=== PATIENT | male | born 1945 | race Caucasian/White ===

== ENCOUNTER 2016-12-09 14:57 | Inpatient (IN) | payer MEDICARE ==
[2016-12-09] MEDS ORDERED: ONDANSETRON 4 MG/2 ML VIAL IVP STA (17:25)
[2016-12-09] MEDS ORDERED: SODIUM CHLORIDE 0.9% 1,000 ML IV ONE (17:25)
[2016-12-09] MEDS ORDERED: HYDROmorphone 1 MG/ML 1 ML SYRINGE IVP STA (17:25)
--- NOTE | 2016-12-09 17:30 | ED ---
Abdominal Pain HPI - General Source: patient, RN notes reviewed Mode of arrival: ambulatory Limitations: no limitations <Courtney Mulligan - Last Filed: 12/09/16 20:20> <Abhay Hernandez - Last Filed: 12/09/16 21:20> - General Chief Complaint: Abdominal Pain Stated Complaint: Abd Pain Time Seen by Provider: 12/09/16 17:02 - History of Present Illness Initial Comments: Patient is a 71-year-old male presents emergency room for evaluation of abdominal pain. Patient states the pain began around 10:30 this morning. Patient does state he has a history of gallstones. Patient states he was told by his primary care provider about 2 years ago that he did. Patient states that he had pizza last night and hinojosa this morning. Patient states the pain started shortly after eating the hinojosa. Patient states been very nauseous with vomiting. Patient states the pain is in his right upper quadrant and radiates to his left upper quadrant. The patient denies any abdominal surgical history. Patient denies constipation or diarrhea. Patient has pain or burning during urination, trouble urinating or blood in urine. Patient denies headache or dizziness. Patient denies shortness of breath. Patient states the pain radiates into his back. (Courtney Mulligan) - Related Data Home Medications Medication Instructions Recorded Confirmed Aspirin 81 mg PO DAILY 12/09/16 12/09/16 Atorvastatin [Lipitor] 20 mg PO HS 12/09/16 12/09/16 Irbesartan/Hydrochlorothiazide 1 tab PO DAILY 12/09/16 12/09/16 [Irbesartan-Hctz 300-12.5 mg Tb] Multivitamins, Thera [Multivitamin 1 tab PO DAILY 12/09/16 12/09/16 (formulary)] [place]-3 Fatty Acids/Fish Oil [Fish 1 cap PO DAILY 12/09/16 12/09/16 Oil 1,000 mg Softgel] Omeprazole 20 mg PO BID 12/09/16 12/09/16 Allergies Allergy/AdvReac Type Severity Reaction Status Date / Time No Known Allergies Allergy Verified 12/09/16 17:15 Review of Systems ROS Other: All systems not noted in ROS Statement are negative. <Courtney Mulligan - Last Filed: 12/09/16 20:20> ROS Other: All systems not noted in ROS Statement are negative. <Abhay Hernandez - Last Filed: 12/09/16 21:20> ROS Statement: Those systems with pertinent positive or pertinent negative responses have been documented in the HPI. Past Medical History Past Medical History: GERD/Reflux Additional Past Medical History / Comment(s): hiatal hernia, gallstones, esophageal erosion History of Any Multi-Drug Resistant Organisms: None Reported Past Surgical History: Hernia Repair Past Psychological History: No Psychological Hx Reported Smoking Status: Never smoker Past Alcohol Use History: None Reported Past Drug Use History: None Reported <Courtney Mulligan - Last Filed: 12/09/16 20:20> General Exam Limitations: no limitations General appearance: alert, in no apparent distress Head exam: Present: atraumatic, normocephalic, normal inspection Eye exam: Present: normal appearance ENT exam: Present: normal exam Neck exam: Present: normal inspection Respiratory exam: Present: normal lung sounds bilaterally. Absent: respiratory distress Cardiovascular Exam: Present: regular rate, normal rhythm, normal heart sounds GI/Abdominal exam: Present: soft, tenderness (Right upper quadrant and left upper quadrant), normal bowel sounds. Absent: distended, guarding, rebound, rigid Extremities exam: Present: normal inspection Back exam: Present: normal inspection Neurological exam: Present: alert, oriented X3, CN II-XII intact, normal gait Psychiatric exam: Present: normal affect, normal mood Skin exam: Present: warm, dry, intact, normal color. Absent: rash <Courtney Mulligan - Last Filed: 12/09/16 20:20> <Abhay Hernandez - Last Filed: 12/09/16 21:20> - General Exam Comments Initial Comments: Laying in exam room, no acute distress. (Courtney Mulligan) Medical Decision Making - Lab Data Result diagrams: 12/09/16 17:30 12/09/16 17:18 - Radiology Data Radiology results: report reviewed, image reviewed <Courtney Mulligan - Last Filed: 12/09/16 20:20> - Lab Data Result diagrams: 12/09/16 17:30 12/09/16 17:18 <Abhay Hernandez - Last Filed: 12/09/16 21:20> - Medical Decision Making Patient is 71-year-old male presents emergency room for evaluation of right upper quadrant pain, nausea and vomiting. Patient noted to have a fever while he was here. Elevated WBC. Elevated liver enzymes. Elevated amylase and lipase. Gallbladder US: Mobile gallbladder sludge and elongation. Although likely unrelated to acute cholecystitis. Common bile duct obscured by overlying bowel gas. Case discussed Dr. Morris. Dr. Hernandez discussed case with Dr. Wolf who agreed to admit patient. Patient become consult with GI specialist and surgery. Patient NPO. Patient started Zosyn. (Courtney Mulligan) The case discussed with Dr. Gipson, patient be admitted to his service. Case discussed with trailer steerer Dr. Fitzgerald, he'll see the patient in hospital. Dr. Hernandez Reports that the pain started acutely earlier today. Denies ever having had gallbladder or pancreatic problems in the past. Examination found the abdomen to palpation negative Aguero sign NABS. A she does state that his urine was darker this morning. Dr. Hernandez (Abhay Hernandez) - Lab Data Lab Results 12/09/16 12/09/16 12/09/16 Range/Units 17:18 17:30 17:32 WBC 14.6 H (3.8-10.6) k/uL RBC 5.22 (4.30-5.90) m/uL Hgb 15.0 (13.0-17.5) gm/dL Hct 46.9 (39.0-53.0) % MCV 89.8 (80.0-100.0) fL MCH 28.8 (25.0-35.0) pg MCHC 32.1 (31.0-37.0) g/dL RDW 13.5 (11.5-15.5) % Plt Count 264 (150-450) k/uL Neutrophils % 90 % Lymphocytes % 5 % Monocytes % 4 % Eosinophils % 1 % Basophils % 0 % Neutrophils # 13.1 H (1.3-7.7) k/uL Lymphocytes # 0.7 L (1.0-4.8) k/uL Monocytes # 0.6 (0-1.0) k/uL Eosinophils # 0.1 (0-0.7) k/uL Basophils # 0.0 (0-0.2) k/uL PT (9.0-12.0) sec INR (<1.1) Sodium 143 (137-145) mmol/L Potassium 4.0 (3.5-5.1) mmol/L Chloride 104 (98-107) mmol/L Carbon Dioxide 22 (22-30) mmol/L Anion Gap 17 mmol/L BUN 19 (9-20) mg/dL Creatinine 0.95 (0.66-1.25) mg/dL Est GFR (MDRD) Af Amer >60 (>60 ml/min/1.73 sqM) Est GFR (MDRD) Non-Af >60 (>60 ml/min/1.73 sqM) Glucose 165 H (74-99) mg/dL Calcium 9.4 (8.4-10.2) mg/dL Magnesium 1.8 (1.6-2.3) mg/dL Total Bilirubin 3.5 H (0.2-1.3) mg/dL AST 233 H (17-59) U/L ALT 140 H (21-72) U/L Alkaline Phosphatase 444 H (38-126) U/L Total Creatine Kinase 45 L (55-170) U/L CK-MB (CK-2) 0.8 (0.0-2.4) ng/mL CK-MB (CK-2) Rel Index 1.8 Troponin I <0.012 (0.000-0.034) ng/mL Total Protein 7.9 (6.3-8.2) g/dL Albumin 4.5 (3.5-5.0) g/dL Amylase 1620 H* (30-110) U/L Lipase >06178 H (23-300) U/L 12/09/16 Range/Units 17:32 WBC (3.8-10.6) k/uL RBC (4.30-5.90) m/uL Hgb (13.0-17.5) gm/dL Hct (39.0-53.0) % MCV (80.0-100.0) fL MCH (25.0-35.0) pg MCHC (31.0-37.0) g/dL RDW (11.5-15.5) % Plt Count (150-450) k/uL Neutrophils % % Lymphocytes % % Monocytes % % Eosinophils % % Basophils % % Neutrophils # (1.3-7.7) k/uL Lymphocytes # (1.0-4.8) k/uL Monocytes # (0-1.0) k/uL Eosinophils # (0-0.7) k/uL Basophils # (0-0.2) k/uL PT 11.1 (9.0-12.0) sec INR 1.1 (<1.1) Sodium (137-145) mmol/L Potassium (3.5-5.1) mmol/L Chloride (98-107) mmol/L Carbon Dioxide (22-30) mmol/L Anion Gap mmol/L BUN (9-20) mg/dL Creatinine (0.66-1.25) mg/dL Est GFR (MDRD) Af Amer (>60 ml/min/1.73 sqM) Est GFR (MDRD) Non-Af (>60 ml/min/1.73 sqM) Glucose (74-99) mg/dL Calcium (8.4-10.2) mg/dL Magnesium (1.6-2.3) mg/dL Total Bilirubin (0.2-1.3) mg/dL AST (17-59) U/L ALT (21-72) U/L Alkaline Phosphatase (38-126) U/L Total Creatine Kinase (55-170) U/L CK-MB (CK-2) (0.0-2.4) ng/mL CK-MB (CK-2) Rel Index Troponin I (0.000-0.034) ng/mL Total Protein (6.3-8.2) g/dL Albumin (3.5-5.0) g/dL Amylase (30-110) U/L Lipase (23-300) U/L 12/09/16 19:51 Normal sinus rhythm, ventricular rate 75 bpm, WA interval 154 ms, QRS duration 150 ms, QT/QTc 420/469 ms (Courtney Mulligan) Disposition Decision Date: 12/09/16 <Courtney Mulligan - Last Filed: 12/09/16 20:20> <Abhay Hernandez - Last Filed: 12/09/16 21:20> Clinical Impression: Cholecystitis, Pancreatitis Disposition: ADMITTED IP TO THIS [facility] Condition: Stable
[2016-12-09 17:45] LABS: Basophils % (A) 0 %; CH 28.1; CHCM 31.5; Eosinophils # (A) 0.1 k/uL (0-0.7); Eosinophils % (A) 1 %; HCT 46.9 % (39.0-53.0); HDW 2.56; Luc # (Auto) 0.08; Luc % (Auto) 1; Lymphocytes # (A) 0.7 k/uL (1.0-4.8); Lymphocytes % (A) 5 %; MCH 28.8 pg (25.0-35.0); MCHC 32.1 g/dL (31.0-37.0); MCV 89.8 fL (80.0-100.0); Mean Platelet Volume 7.6; Monocytes # (A) 0.6 k/uL (0-1.0); Monocytes % (A) 4 %; Neutrophils # (A) 13.1 k/uL (1.3-7.7); Neutrophils % (A) 90 %; RBC 5.22 m/uL (4.30-5.90); RDW 13.5 % (11.5-15.5); WBC 14.6 k/uL (3.8-10.6); WBC (Perox) 14.79
[2016-12-09 17:53] LABS: ALT 140 U/L (21-72); AST 233 U/L (17-59); Alkaline Phosphatase 444 U/L (38-126); Anion Gap 17 mmol/L; Blood Urea Nitrogen 19 mg/dL (9-20); Calcium 9.4 mg/dL (8.4-10.2); Carbon Dioxide 22 mmol/L (22-30); Chloride 104 mmol/L (98-107); Glucose 165 mg/dL (74-99); Magnesium 1.8 mg/dL (1.6-2.3); Non-African American GFR(MDRD) >60 (>60 ml/min/1.73 sqM); Sodium 143 mmol/L (137-145); Total Bilirubin 3.5 mg/dL (0.2-1.3); Total Protein 7.9 g/dL (6.3-8.2)
[2016-12-09 17:56] LABS: Creatine Kinase 45 U/L (55-170)
[2016-12-09 18:08] LABS: Creatine Kinase MB 0.8 ng/mL (0.0-2.4); Troponin I <0.012 ng/mL (0.000-0.034)
[2016-12-09 18:09] LABS: Amylase 1620 U/L (30-110)
--- NOTE | 2016-12-09 18:17 | XR ---
EXAMINATION TYPE: XR chest 2V DATE OF EXAM: 12/09/2016 5:57 PM COMPARISON: NONE HISTORY: Vomiting and chest pain. TECHNIQUE: Frontal and lateral views of the chest are obtained. FINDINGS: There is no focal air space opacity, pleural effusion, or pneumothorax seen. Minimal bibas ilar subsegmental atelectasis is seen. The cardiac silhouette size is within normal limits. The oss eous structures are intact. IMPRESSION: Minimal bibasilar subsegmental atelectasis with no focal consolidation.
[2016-12-09 18:18] LABS: INR 1.1 (<1.1); Prothrombin Time 11.1 sec (9.0-12.0)
[2016-12-09] MEDS ORDERED: ACETAMINOPHEN IV (For NPO) 1,000 MG in EMPTY BAG 1 BAG IVPB STA ×2 (19:13→19:34)
--- NOTE | 2016-12-09 20:08 | US ---
EXAMINATION TYPE: US abdomen limited DATE OF EXAM: 12/09/2016 7:34 PM COMPARISON: NONE CLINICAL HISTORY: Pain. N/V, RUQ pain EXAM MEASUREMENTS: Liver Length: 16.9 cm Gallbladder Wall: 0.3 cm Right Kidney: 10.9 x 5.5 x 5.0 cm Suboptimal visualization due to bowel gas Pancreas: Obscured by bowel gas Liver: wnl as visualized Gallbladder: The gallbladder is elongated measuring 10.6 cm. Internal mobile debris is noted. There is no evidence of pericholecystic fluid or gallbladder wall thickening. Evidence for sonographic Aguero's sign: neg CBD: Obscured by overlying bowel gas Right Kidney: wnl as visualized IMPRESSION: Mobile gallbladder sludge and elongation, although likely unrelated to acute cholecystiti s. Common bile duct is obscured by overlying bowel gas.
[2016-12-09] MEDS ORDERED: PIPERACILLIN-TAZOBACTAM 3.375 GM in DEXTROSE/WATER 1 50ML.BAG IVPB STA (20:13)
[2016-12-09] MEDS ORDERED: ONDANSETRON 4 MG/2 ML VIAL IVP PRN (20:17)
[2016-12-09] MEDS ORDERED: NALOXONE 0.4 MG/ML 1 ML VIAL IV PRN (20:17)
[2016-12-09] MEDS ORDERED: HYDROmorphone 1 MG/ML 1 ML SYRINGE IV PRN (20:17)
[2016-12-09] MEDS: SODIUM CHLORIDE 0.9% 1,000 ML IV SCH (21:20)
[2016-12-10] MEDS: SODIUM CHLORIDE 0.9% 1,000 ML IV SCH ×2 (06:38→17:44)
[2016-12-10 07:49] LABS: Basophils % (A) 0 %; CH 28.4; CHCM 32.1; Eosinophils % (A) 0 %; HCT 38.9 % (39.0-53.0); HGB 12.5 gm/dL (13.0-17.5); Luc # (Auto) 0.27; Luc % (Auto) 2; Lymphocytes # (A) 0.8 k/uL (1.0-4.8); Lymphocytes % (A) 7 %; MCH 28.6 pg (25.0-35.0); MCHC 32.1 g/dL (31.0-37.0); Mean Platelet Volume 8.1; Monocytes # (A) 0.8 k/uL (0-1.0); Monocytes % (A) 7 %; Neutrophils # (A) 9.3 k/uL (1.3-7.7); Neutrophils % (A) 83 %; RBC 4.37 m/uL (4.30-5.90); RDW 13.6 % (11.5-15.5); WBC 11.3 k/uL (3.8-10.6); WBC (Perox) 12.35
[2016-12-10 08:12] LABS: ALT 159 U/L (21-72); AST 218 U/L (17-59); Alkaline Phosphatase 317 U/L (38-126); Anion Gap 8 mmol/L; Blood Urea Nitrogen 21 mg/dL (9-20); Calcium 8.5 mg/dL (8.4-10.2); Carbon Dioxide 29 mmol/L (22-30); Chloride 108 mmol/L (98-107); Glucose 110 mg/dL (74-99); Non-African American GFR(MDRD) >60 (>60 ml/min/1.73 sqM); Potassium 3.8 mmol/L (3.5-5.1); Sodium 145 mmol/L (137-145); Total Bilirubin 4.2 mg/dL (0.2-1.3); Total Protein 6.1 g/dL (6.3-8.2)
--- NOTE | 2016-12-10 10:50 | P.GSCN ---
History of Present Illness Consult date: 12/10/16 Reason for Consult: Right quadrant pain History of present illness: This a 71-year-old male who is admitted to the hospital with complaint abdominal pain. Patient has a known history of gallstones. Patient developed pain which radiated to his back. His nasal hospital found have gallstones pancreatitis. Review of Systems - Constitutional Reports as per HPI Past Medical History Past Medical History: GERD/Reflux Additional Past Medical History / Comment(s): hiatal hernia, gallstones, esophageal erosion History of Any Multi-Drug Resistant Organisms: None Reported Past Surgical History: Hernia Repair, Tonsillectomy Additional Past Surgical History / Comment(s): detached retnia repair Past Anesthesia/Blood Transfusion Reactions: Previous Problems w/ Anesthesia Additional Past Anesthesia/Blood Transfusion Reaction / Comm: difficulty waking up Past Psychological History: No Psychological Hx Reported Smoking Status: Never smoker Past Alcohol Use History: None Reported Past Drug Use History: None Reported - Past Family History Father Family Medical History: GERD/Reflux Additional Family Medical History / Comment(s): gallbladder removed Mother Family Medical History: Congestive Heart Failure (CHF), Diabetes Mellitus Medications and Allergies Home Medications Medication Instructions Recorded Confirmed Type Aspirin 81 mg PO DAILY 12/09/16 12/09/16 History Atorvastatin [Lipitor] 20 mg PO HS 12/09/16 12/09/16 History Irbesartan/Hydrochlorothiazide 1 tab PO DAILY 12/09/16 12/09/16 History [Irbesartan-Hctz 300-12.5 mg Tb] Multivitamins, Thera [Multivitamin 1 tab PO DAILY 12/09/16 12/09/16 History (formulary)] [place]-3 Fatty Acids/Fish Oil [Fish 1 cap PO DAILY 12/09/16 12/09/16 History Oil 1,000 mg Softgel] Omeprazole 20 mg PO BID 12/09/16 12/09/16 History Allergies Allergy/AdvReac Type Severity Reaction Status Date / Time No Known Allergies Allergy Verified 12/09/16 17:15 Surgical - Exam Vital Signs Temp Pulse Resp BP Pulse Ox 98.3 F 83 20 141/62 98 12/09/16 15:45 12/09/16 15:45 12/09/16 15:45 12/09/16 15:45 12/09/16 15:45 - General well developed, no distress - Eyes PERRL - ENT normal pinna - Neck no masses - Respiratory normal expansion - Cardiovascular Rhythm: regular - Abdomen Mild epigastric tenderness Abdomen: soft Results - Labs 12/10/16 07:26 12/10/16 07:26 Abnormal Lab Results - Last 24 Hours (Table) 12/10/16 12/10/16 Range/Units 07:26 07:26 WBC 11.3 H (3.8-10.6) k/uL Hgb 12.5 L (13.0-17.5) gm/dL Hct 38.9 L (39.0-53.0) % Neutrophils # 9.3 H (1.3-7.7) k/uL Lymphocytes # 0.8 L (1.0-4.8) k/uL Chloride 108 H (98-107) mmol/L BUN 21 H (9-20) mg/dL Glucose 110 H (74-99) mg/dL Total Bilirubin 4.2 H (0.2-1.3) mg/dL AST 218 H (17-59) U/L ALT 159 H (21-72) U/L Alkaline Phosphatase 317 H (38-126) U/L Total Protein 6.1 L (6.3-8.2) g/dL Albumin 3.3 L (3.5-5.0) g/dL Diabetes panel 12/10/16 Range/Units 07:26 Sodium 145 (137-145) mmol/L Potassium 3.8 (3.5-5.1) mmol/L Chloride 108 H (98-107) mmol/L Carbon Dioxide 29 (22-30) mmol/L BUN 21 H (9-20) mg/dL Creatinine 1.14 (0.66-1.25) mg/dL Glucose 110 H (74-99) mg/dL Calcium 8.5 (8.4-10.2) mg/dL AST 218 H (17-59) U/L ALT 159 H (21-72) U/L Alkaline Phosphatase 317 H (38-126) U/L Total Protein 6.1 L (6.3-8.2) g/dL Albumin 3.3 L (3.5-5.0) g/dL Calcium panel 12/10/16 Range/Units 07:26 Calcium 8.5 (8.4-10.2) mg/dL Albumin 3.3 L (3.5-5.0) g/dL Pituitary panel 12/10/16 Range/Units 07:26 Sodium 145 (137-145) mmol/L Potassium 3.8 (3.5-5.1) mmol/L Chloride 108 H (98-107) mmol/L Carbon Dioxide 29 (22-30) mmol/L BUN 21 H (9-20) mg/dL Creatinine 1.14 (0.66-1.25) mg/dL Glucose 110 H (74-99) mg/dL Calcium 8.5 (8.4-10.2) mg/dL Adrenal panel 12/10/16 Range/Units 07:26 Sodium 145 (137-145) mmol/L Potassium 3.8 (3.5-5.1) mmol/L Chloride 108 H (98-107) mmol/L Carbon Dioxide 29 (22-30) mmol/L BUN 21 H (9-20) mg/dL Creatinine 1.14 (0.66-1.25) mg/dL Glucose 110 H (74-99) mg/dL Calcium 8.5 (8.4-10.2) mg/dL Total Bilirubin 4.2 H (0.2-1.3) mg/dL AST 218 H (17-59) U/L ALT 159 H (21-72) U/L Alkaline Phosphatase 317 H (38-126) U/L Total Protein 6.1 L (6.3-8.2) g/dL Albumin 3.3 L (3.5-5.0) g/dL Assessment and Plan Plan: Gallstone [place]. Patient's pain is improved. We'll start him on clear liquid diet. His liver function tests we'll repeat reexamined in the a.m.
--- NOTE | 2016-12-10 14:21 | HP ---
DATE OF ADMISSION: CHIEF COMPLAINT: A 71-year-old white male with abdominal pain, nausea and vomiting. HISTORY OF PRESENT ILLNESS: This 71-year-old white male has a past medical history of hypertension and gallstones. He had some pizza and hinojosa. After that he became nauseous, vomiting, with right upper quadrant pain. He came to the hospital, was found to have acute cholecystitis on ultrasound. Admitted for surgery and rehydration. ( ) no chest pain, no shortness of breath. Medications include: 1. Aspirin 81 daily. 2. Lipitor 20 daily. 3. Irbesartan/hydrochlorothiazide 300/12.5 one daily. 4. Multivitamin daily. 5. Omeprazole 20 b.i.d. ALLERGIES: NO KNOWN DRUG ALLERGIES. REVIEW OF SYSTEMS: PSYCH: Negative. NEURO: Negative. CARDIAC: Negative. PULMONARY: Negative. ENDOCRINE: Negative. GI: Negative. : Negative. OPHTHALMOLOGIC: Negative. PHYSICAL EXAM: VITAL SIGNS: Stable. Afebrile. CARDIOVASCULAR: S1, S2. LUNGS: Transmitted upper airway sounds. GI: Soft. Tenderness to palpation, right upper quadrant. Normal bowel sounds. HEMATOLOGIC: Negative Dev's. PSYCHIATRIC: Fair mood and affect. NEUROLOGIC: Alert and oriented x3. VASCULAR: Normal dorsalis pedis, posterior tibial and radial pulses. SKIN: No rashes, excoriations, bruising. LABS: White count 14.6, hemoglobin 15.0, platelets 165,000. ASSESSMENT: 1. Right upper quadrant abdominal pain, nausea, vomiting; acute cholecystitis. 2. History of hypertension. 3. Hyperglycemia. PLAN: Surgical consultation. Pancreatitis will be reviewed and treated. Also possible ERCP and cholecystectomy will be done. Please see further orders.
[2016-12-10] MEDS: PANTOPRAZOLE 40 MG TABLET PO SCH (17:44)
[2016-12-10] MEDS: ATORVASTATIN 20 MG TAB PO SCH (21:42)
[2016-12-11] MEDS: SODIUM CHLORIDE 0.9% 1,000 ML IV SCH ×3 (04:53→21:42)
[2016-12-11 08:42] LABS: Basophils % (A) 0 %; CH 28.6; CHCM 32.3; Eosinophils # (A) 0.1 k/uL (0-0.7); Eosinophils % (A) 2 %; HCT 37.2 % (39.0-53.0); HDW 2.78; HGB 12.3 gm/dL (13.0-17.5); Luc # (Auto) 0.22; Luc % (Auto) 4; Lymphocytes # (A) 0.9 k/uL (1.0-4.8); Lymphocytes % (A) 17 %; MCH 29.3 pg (25.0-35.0); MCHC 32.9 g/dL (31.0-37.0); MCV 89.1 fL (80.0-100.0); Mean Platelet Volume 7.7; Monocytes # (A) 0.5 k/uL (0-1.0); Monocytes % (A) 10 %; Neutrophils # (A) 3.3 k/uL (1.3-7.7); Neutrophils % (A) 66 %; RBC 4.18 m/uL (4.30-5.90); RDW 13.5 % (11.5-15.5); WBC (Perox) 5.25
[2016-12-11] MEDS: PANTOPRAZOLE 40 MG TABLET PO SCH ×2 (08:58→16:49)
[2016-12-11] MEDS: HYDROCHLOROTHIAZIDE 12.5 MG CAP PO SCH (08:58)
[2016-12-11] MEDS: LOSARTAN 50 MG TAB PO SCH (08:58)
[2016-12-11 09:02] LABS: ALT 113 U/L (21-72); AST 107 U/L (17-59); Alkaline Phosphatase 324 U/L (38-126); Anion Gap 8 mmol/L; Blood Urea Nitrogen 15 mg/dL (9-20); Calcium 8.2 mg/dL (8.4-10.2); Carbon Dioxide 26 mmol/L (22-30); Chloride 107 mmol/L (98-107); Glucose 113 mg/dL (74-99); Non-African American GFR(MDRD) >60 (>60 ml/min/1.73 sqM); Potassium 3.6 mmol/L (3.5-5.1); Sodium 141 mmol/L (137-145); Total Bilirubin 4.1 mg/dL (0.2-1.3); Total Protein 5.6 g/dL (6.3-8.2)
--- NOTE | 2016-12-11 11:08 | P.CONS ---
History of Present Illness - Reason for Consult Consult date: 12/10/16 Pancreatitis and suspected CBD stone - History of Present Illness The patient is a 71-year-old male who presented to the emergency room yesteday for evaluation of abdominal pain. He stated the pain started around 10:30 that morning. He has history of gallstones and was told about it by his primary care provider about 2 years ago. Patient had pizza the night before and hinojosa the morning of admission. He indicated the pain started shortly after eating the hinojosa. He had nausea with vomiting. Patient states the pain is in his right upper quadrant and radiates to his left upper quadrant and back. The patient denies any abdominal surgical history or change in bowel habits. Review of Systems Constitutional: Denies fever, chills, sweats, weight gain, or loss. HEENT: Negative for migraines, blurred vision or loss, earaches, drainage, tinnitus, oral mucosal lesions, dysphagia, or odynophagia. Cardiac: Negative for chest pain, arrhythmias, or palpitation. Respiratory: Negative for shortness of breath, hemoptysis, cough, or sputum production. Gastrointestinal: See HPI for pertinent findings. Genitourinary: Negative for hematuria, urgency, frequency, polyuria, dysuria, or penile discharge. Musculoskeletal: Negative for muscle aches, swelling, arthritis, and arthralgias. Neurologic: Negative for stroke or TIA. Endocrine: No history of DM or thyroid disease Skin: Negative for rash or itching. Psychiatric: Negative history for depression and anxiety Past Medical History Past Medical History: GERD/Reflux Additional Past Medical History / Comment(s): hiatal hernia, gallstones, esophageal erosion History of Any Multi-Drug Resistant Organisms: None Reported Past Surgical History: Hernia Repair, Tonsillectomy Additional Past Surgical History / Comment(s): detached retnia repair Past Anesthesia/Blood Transfusion Reactions: Previous Problems w/ Anesthesia Additional Past Anesthesia/Blood Transfusion Reaction / Comm: difficulty waking up Past Psychological History: No Psychological Hx Reported Smoking Status: Never smoker Past Alcohol Use History: None Reported Past Drug Use History: None Reported - Past Family History Father Family Medical History: GERD/Reflux Additional Family Medical History / Comment(s): gallbladder removed Mother Family Medical History: Congestive Heart Failure (CHF), Diabetes Mellitus Medications and Allergies Home Medications Medication Instructions Recorded Confirmed Type Aspirin 81 mg PO DAILY 12/09/16 12/09/16 History Atorvastatin [Lipitor] 20 mg PO HS 12/09/16 12/09/16 History Irbesartan/Hydrochlorothiazide 1 tab PO DAILY 12/09/16 12/09/16 History [Irbesartan-Hctz 300-12.5 mg Tb] Multivitamins, Thera [Multivitamin 1 tab PO DAILY 12/09/16 12/09/16 History (formulary)] [place]-3 Fatty Acids/Fish Oil [Fish 1 cap PO DAILY 12/09/16 12/09/16 History Oil 1,000 mg Softgel] Omeprazole 20 mg PO BID 12/09/16 12/09/16 History Allergies Allergy/AdvReac Type Severity Reaction Status Date / Time No Known Allergies Allergy Verified 12/09/16 17:15 Physical Exam Vitals: Vital Signs Temp Pulse Pulse Resp BP BP Pulse Ox 12/10/16 14:49 97.4 F L 71 20 103/57 96 12/10/16 07:00 99.7 F H 60 20 94/53 93 L 12/10/16 06:27 100 F H 67 96 12/09/16 23:05 99.3 F 88 19 109/56 91 L 12/09/16 21:23 101 F H 60 13 100/58 92 L Intake and Output 12/10/16 12/10/16 12/10/16 06:59 14:59 22:59 Other: # Voids 1 2 General appearance: The patient is alert, oriented, in no acute distress. HET: Head is normocephalic and atraumatic. Pupils are equal and reactive. Oropharynx is clear without lesions. Neck: Supple without lymphadenopathy. Trachea midline. Heart: Regular, no abnormal sounds, murmurs, gallops or friction rubs Lungs: No diminished in bases bilaterally.. Abdomen: Soft, nontender, nondistended with normal bowel sounds. No peritoneal signs. No palpable organomegaly or masses. Extremities: Normal skin color and turgor. No cyanosis, rash, ulceration, clubbing, or edema. Radial and pedal pulses are 2/4 bilaterally. Neurological: Alert and oriented X 3. Cranial nerves intact. No focal deficits. Strength and sensation are grossly intact. Results CBC & Chem 7: 12/11/16 07:59 12/11/16 07:59 Labs: Abnormal Lab Results - Last 24 Hours (Table) 12/10/16 12/10/16 Range/Units 07:26 07:26 WBC 11.3 H (3.8-10.6) k/uL Hgb 12.5 L (13.0-17.5) gm/dL Hct 38.9 L (39.0-53.0) % Neutrophils # 9.3 H (1.3-7.7) k/uL Lymphocytes # 0.8 L (1.0-4.8) k/uL Chloride 108 H (98-107) mmol/L BUN 21 H (9-20) mg/dL Glucose 110 H (74-99) mg/dL Total Bilirubin 4.2 H (0.2-1.3) mg/dL AST 218 H (17-59) U/L ALT 159 H (21-72) U/L Alkaline Phosphatase 317 H (38-126) U/L Total Protein 6.1 L (6.3-8.2) g/dL Albumin 3.3 L (3.5-5.0) g/dL Assessment and Plan Plan: 71-year old male with presentation consistent with GS pancreatitis. He likely passed a CBD stone already. Will follow his clinical course closely. I will consider ERCP if his liver enzymes do not continue to improve or if a set back. Otherwise, I anticipate he will need cholecystectomy this admission. I will discuss with you and Dr Sin.
--- NOTE | 2016-12-11 13:40 | P.PN ---
Progress Note - Text The patient feels better. His liver enzymes have decreased since yesterday. On exam his vital signs are stable. His abdomen soft. Patient will be scheduled for laparoscopic cholecystectomy in a.m.
[2016-12-11 13:59] LABS: Hemoglobin A1C 5.9 % (4.2-6.1)
[2016-12-11] MEDS: ATORVASTATIN 20 MG TAB PO SCH (21:41)
--- NOTE | 2016-12-12 07:21 | PN ---
A 71-year-old white male who is feeling better today, decreased abdominal pain. His enzymes are better. VITAL SIGNS: Stable, afebrile. CARDIOVASCULAR: S1, S2. Lungs are clear. GI: Soft. HEMATOLOGIC: Negative Homans. Temperature 97, pulse is 53, respirations 20, blood pressure 112/63, O2 is 95% on room air. Lipase is down to 516. Have laparoscopic cholecystectomy in the morning. Continue with current treatment, otherwise for pain and fluid hydration.
[2016-12-12] MEDS: PANTOPRAZOLE 40 MG TABLET PO SCH ×2 (07:46→16:47)
[2016-12-12] MEDS: HYDROCHLOROTHIAZIDE 12.5 MG CAP PO SCH (08:10)
[2016-12-12] MEDS: LOSARTAN 50 MG TAB PO SCH (08:10)
[2016-12-12] MEDS: SODIUM CHLORIDE 0.9% 1,000 ML IV SCH ×2 (09:48→19:45)
[2016-12-12] MEDS ORDERED: IV FLUID CONTINUATION 1,000 ML IV ONE (10:04)
[2016-12-12] MEDS ORDERED: DEXAMETHASONE SOD PHOS (MDV) 100 MG/10 ML VIAL IVP ONE (10:14)
[2016-12-12] MEDS ORDERED: HEPARIN SODIUM,PORCINE 5,000 UNIT/ML 1 ML VIAL SQ ONE (11:23)
[2016-12-12] MEDS ORDERED: MIDAZOLAM 2 MG/2 ML VIAL ONE (11:37)
[2016-12-12] MEDS ORDERED: LIDOCAINE 1% INJ 10MG/ML (20 ML MDV) ONE (11:37)
[2016-12-12] MEDS ORDERED: NEOSTIGMINE 1 MG/ML 10 ML VIAL ONE (11:37)
[2016-12-12] MEDS ORDERED: ROCURONIUM BROMIDE 10 MG/ML 10 ML VIAL IV ONE (11:37)
[2016-12-12] MEDS ORDERED: SUCCINYLCHOLINE CHLORIDE 100 MG/5 ML SYR IV ONE (11:37)
[2016-12-12] MEDS ORDERED: GLYCOPYRROLATE 0.2 MG/ML 2 ML VIAL ONE (11:37)
[2016-12-12] MEDS ORDERED: PROPOFOL 10 MG/ML 20 ML VIAL IV ONE (11:37)
[2016-12-12] MEDS ORDERED: fentaNYL (PF) 50 MCG/ML 2 ML AMP ONE (11:37)
[2016-12-12] MEDS ORDERED: SODIUM CHLORIDE 0.9% 50 ML with ceFAZolin 2,000 MG IV ONE ×2 (11:54)
[2016-12-12] MEDS ORDERED: BUPIVACAIN-EPI 0.25%-1:200,000 30 ML VIAL SQ ONE (11:58)
[2016-12-12] MEDS ORDERED: LACTATED RINGERS 1,000 ML IV ONE ×2 (12:13→12:21)
[2016-12-12] MEDS ORDERED: HYDROcodone/APAP 5-325MG 1 EACH TAB PO PRN (12:21)
[2016-12-12] MEDS ORDERED: NALOXONE 0.4 MG/ML 1 ML VIAL IV PRN (12:21)
--- NOTE | 2016-12-12 12:21 | P.OP ---
Date of Procedure: 12/12/16 Preoperative Diagnosis: Gallstone pancreatitis Cholelithiasis Postoperative Diagnosis: Gallstone pancreas taste Cholelithiasis, cholecystitis Procedure(s) Performed: Laparoscopic cholecystectomy Anesthesia: CARMENCITA Surgeon: Deangelo Sin Estimated Blood Loss (ml): 5 Pathology: other (Gallbladder) Condition: stable Disposition: PACU Description of Procedure: The patient was placed on the operating table. The patient received a general endotracheal tube anesthesia. The patients abdomen was prepped and draped in the usual sterile fashion. Through an infraumbilical stab incision, the fascia of the anterior abdominal wall was grasped with a pair of Kochers and then the Veress needle was placed in the peritoneal cavity. Position of the Veress needle was confirmed with positive drop test. The abdomen was then insufflated. After adequate insufflation, the 10 mm trocar was placed in the peritoneal cavity. Following this the laparoscope was placed in the peritoneal cavity. The patient was placed in the head-up, right side up position and then a 5 mm trocar was placed in the right lateral and right subcostal position under direct visualization. A 8 mm trocar was placed in the epigastric position. The gallbladder was grasped in the fundus and infundibulum. Traction on the gallbladder was placed in the lateral and the cephalad positions. The triangle of Calot was visualized.. The cystic duct was bluntly dissected until the union of the cystic duct and common bile duct was seen. The cystic duct was then divided and sealed with the Harmonic scissors. A PDS Endoloop was then placed throughout the cystic duct stump. The cystic artery divided and sealed with the Harmonic scissors. The gallbladder was then removed from the liver bed using Harmonic scissors. The gallbladder was then extracted through the epigastric port site. Operative field was checked for any bleeding spots and Harmonic scissors was used to coagulate the liver bed. The abdomen was irrigated. The trocars were removed. The skin was closed using interrupted 3-0 Vicryl suture. Dermabond dressing were applied. The patient tolerated the procedure well.
[2016-12-12] MEDS: KETOROLAC 30 MG/ML 1 ML VIAL IVP SCH ×2 (14:09→18:23)
[2016-12-12 14:52] LABS: Calcium 8.8 mg/dL (8.4-10.2); Potassium 4.2 mmol/L (3.5-5.1); Total Bilirubin 4.1 mg/dL (0.2-1.3); Total Protein 6.1 g/dL (6.3-8.2)
[2016-12-12 14:56] LABS: Basophils % (A) 0 %; CHCM 30.8; Eosinophils % (A) 0 %; HCT 43.2 % (39.0-53.0); HDW 2.72; HGB 13.7 gm/dL (13.0-17.5); Hypochromasia Slight; Luc # (Auto) 0.04; Luc % (Auto) 1; Lymphocytes # (A) 0.3 k/uL (1.0-4.8); Lymphocytes % (A) 10 %; MCH 28.9 pg (25.0-35.0); MCHC 31.6 g/dL (31.0-37.0); MCV 91.5 fL (80.0-100.0); Mean Platelet Volume 7.7; Monocytes # (A) 0.1 k/uL (0-1.0); Monocytes % (A) 3 %; Neutrophils # (A) 2.8 k/uL (1.3-7.7); Neutrophils % (A) 85 %; RBC 4.72 m/uL (4.30-5.90); RDW 13.7 % (11.5-15.5); WBC 3.3 k/uL (3.8-10.6); WBC (Perox) 3.54
[2016-12-12] MEDS: ATORVASTATIN 20 MG TAB PO SCH (20:01)
[2016-12-13] MEDS: KETOROLAC 30 MG/ML 1 ML VIAL IVP SCH ×3 (00:11→12:17)
[2016-12-13] MEDS: SODIUM CHLORIDE 0.9% 1,000 ML IV SCH ×2 (04:12→12:17)
[2016-12-13 07:53] VITALS: BP 108/56; RESP 22; TEMP 97.8
--- NOTE | 2016-12-13 08:25 | PN ---
71-year-old white male with pancreatitis, cholecystitis, status post cholecystectomy. Await labs in the morning. He will probably be discharged home in the morning. CARDIOVASCULAR: S1, S2. LUNGS: Clear to auscultation. GI: Soft, nontender. LABS: White count 33.3, creatinine went up to 1.61. Lipase is improving. Status post cholecystectomy. Possible discharge home in the morning if labs are okay. Recheck labs in the morning.
[2016-12-13] MEDS: LOSARTAN 50 MG TAB PO SCH (08:29)
[2016-12-13] MEDS: PANTOPRAZOLE 40 MG TABLET PO SCH (08:29)
[2016-12-13] MEDS: HYDROCHLOROTHIAZIDE 12.5 MG CAP PO SCH (08:29)
[2016-12-13 09:49] LABS: Calcium 8.6 mg/dL (8.4-10.2); Potassium 3.7 mmol/L (3.5-5.1); Total Bilirubin 2.8 mg/dL (0.2-1.3); Total Protein 5.8 g/dL (6.3-8.2)
[2016-12-13 09:53] LABS: Basophils % (A) 0 %; CH 28.3; CHCM 31.4; Eosinophils % (A) 0 %; HCT 39.5 % (39.0-53.0); HDW 2.83; HGB 12.6 gm/dL (13.0-17.5); Hypochromasia Slight; Luc # (Auto) 0.12; Luc % (Auto) 1; Lymphocytes # (A) 1.3 k/uL (1.0-4.8); Lymphocytes % (A) 14 %; MCH 28.9 pg (25.0-35.0); MCHC 31.9 g/dL (31.0-37.0); MCV 90.8 fL (80.0-100.0); Monocytes # (A) 0.3 k/uL (0-1.0); Monocytes % (A) 3 %; Neutrophils # (A) 7.4 k/uL (1.3-7.7); Neutrophils % (A) 81 %; RBC 4.35 m/uL (4.30-5.90); RDW 13.6 % (11.5-15.5); WBC 9.2 k/uL (3.8-10.6); WBC (Perox) 8.95
--- NOTE | 2016-12-13 09:55 | P.PN ---
Subjective Principal diagnosis: Gallstone pancreatitis 71-year-old male admitted with gallstone pancreatitis status post laparoscopic cholecystectomy yesterday. Feels well. Denies abdominal pain. Morning chemistries pending at time of dictation. Afebrile. Objective - Vital Signs Vital signs: Vital Signs Temp 97.8 F 12/13/16 07:00 Pulse 62 12/13/16 08:26 Resp 22 12/13/16 07:00 BP 108/56 12/13/16 07:00 Pulse Ox 93 L 12/13/16 07:00 Intake & Output 12/12/16 12/13/16 12/13/16 18:59 06:59 18:59 Intake Total 950 910 240 Balance 950 910 240 Intake: IV 950 Oral 910 240 Other: Voiding Method Toilet # Voids 1 1 - Exam General appearance: The patient is alert, oriented, in no acute distress. HET: Head is normocephalic and atraumatic. Pupils are equal and reactive. Mild sclerae icterus. Oropharynx is clear without lesions. Neck: Supple without lymphadenopathy. Trachea midline. Heart: S1 S2. Regular rate and rhythm. Lungs: No crackles or wheezes are heard. Abdomen: Soft, nontender, nondistended with bowel sounds. Laparoscopic incisions without erythema or drainage. No peritoneal signs. No palpable organomegaly or masses. Extremities: Normal skin color and turgor. No cyanosis, rash, ulceration, clubbing, or edema. Radial and pedal pulses are 2/4 bilaterally. Neurological: No focal deficits. Strength and sensation are grossly intact. - Labs CBC & Chem 7: 12/13/16 09:10 12/12/16 14:11 Labs: Abnormal Lab Results - Last 24 Hours (Table) 12/12/16 12/12/16 12/13/16 Range/Units 14:11 14:11 09:10 WBC 3.3 L (3.8-10.6) k/uL Hgb 12.6 L (13.0-17.5) gm/dL Lymphocytes # 0.3 L (1.0-4.8) k/uL Sodium 147 H (137-145) mmol/L Chloride 111 H (98-107) mmol/L Creatinine 1.61 H (0.66-1.25) mg/dL Glucose 124 H (74-99) mg/dL Total Bilirubin 4.1 H (0.2-1.3) mg/dL AST 81 H (17-59) U/L ALT 91 H (21-72) U/L Alkaline Phosphatase 492 H (38-126) U/L Total Protein 6.1 L (6.3-8.2) g/dL Albumin 3.1 L (3.5-5.0) g/dL Assessment and Plan (1) Gallstone pancreatitis Status: Acute (2) Cholelithiasis Status: Acute (3) Hepatitis Narrative/Plan: Possible choledocholithiasis suspect passage of gallstone. Status: Acute Plan: 1. If morning liver function tests are improved agreeable for discharge. Assessment and plan of care discussed with Dr. Young.
[2016-12-13 10:49] VITALS: PULSE 45
[2016-12-13] MEDS ORDERED: KETOROLAC 30 MG/ML 1 ML VIAL IVP PRN (12:16)
--- NOTE | 2016-12-13 15:01 | P.PN ---
Subjective Patient is 71-year-old white admitted with gallstone pancreatitis status post laparoscopic cholecystectomy, postop day 1. Patient is doing well. Denies chills, fevers, nausea, vomiting, or abdominal pain. Urinating without difficulty. Tolerating diet. Afebrile. Liver enzymes improving. Objective - Vital Signs Vital signs: Vital Signs Temp 97.8 F 12/13/16 07:00 Pulse 62 12/13/16 08:26 Resp 22 12/13/16 08:00 BP 108/56 12/13/16 07:00 Pulse Ox 93 L 12/13/16 07:00 Intake & Output 12/12/16 12/13/16 12/13/16 18:59 06:59 18:59 Intake Total 950 910 480 Balance 950 910 480 Intake: IV 950 Oral 910 480 Other: Voiding Method Toilet Toilet # Voids 1 1 - Exam GENERAL: Pt awake and alert, well-appearing, well-nourished, and in no acute distress. LUNGS: Breath sounds clear to auscultation bilaterally. No wheezes, rales, or rhonchi. HEART: Heart S1, S2, no S3 or S4. Regular rate and rhythm. No murmurs, rubs or gallops. ABDOMEN: Soft, mild incisional tenderness, nondistended, normoactive bowel sounds. Laparoscopic surgical incisions dry, intact, no erythema or drainage. NEUROLOGICAL: Pt oriented x 3. - Labs CBC & Chem 7: 12/13/16 09:10 12/13/16 09:10 Labs: Abnormal Lab Results - Last 24 Hours (Table) 12/12/16 12/12/16 12/13/16 Range/Units 14:11 14:11 09:10 WBC 3.3 L (3.8-10.6) k/uL Hgb 12.6 L (13.0-17.5) gm/dL Lymphocytes # 0.3 L (1.0-4.8) k/uL Sodium 147 H (137-145) mmol/L Chloride 111 H (98-107) mmol/L BUN (9-20) mg/dL Creatinine 1.61 H (0.66-1.25) mg/dL Glucose 124 H (74-99) mg/dL Total Bilirubin 4.1 H (0.2-1.3) mg/dL AST 81 H (17-59) U/L ALT 91 H (21-72) U/L Alkaline Phosphatase 492 H (38-126) U/L Total Protein 6.1 L (6.3-8.2) g/dL Albumin 3.1 L (3.5-5.0) g/dL 12/13/16 Range/Units 09:10 WBC (3.8-10.6) k/uL Hgb (13.0-17.5) gm/dL Lymphocytes # (1.0-4.8) k/uL Sodium 147 H (137-145) mmol/L Chloride 112 H (98-107) mmol/L BUN 25 H (9-20) mg/dL Creatinine 1.76 H (0.66-1.25) mg/dL Glucose 141 H (74-99) mg/dL Total Bilirubin 2.8 H (0.2-1.3) mg/dL AST (17-59) U/L ALT (21-72) U/L Alkaline Phosphatase 410 H (38-126) U/L Total Protein 5.8 L (6.3-8.2) g/dL Albumin 2.9 L (3.5-5.0) g/dL Assessment and Plan Plan: Impression: Gallstone pancreatitis status post laparoscopic cholecystectomy Plan: Continue to monitor patient. Continue low-fat diet. Continue supportive treatment and pain management. Increase activity. From a surgical standpoint, patient is stable for discharge to home. Patient will follow-up with Dr. Sin in a week. The above impression and plan have been discussed and directed by Dr. Sin. Tyler BARROSO acting as scribe for Dr. Sin.
--- NOTE | 2016-12-17 20:30 | DS ---
DATE OF ADMISSION: 12/09/2016 DATE OF DISCHARGE: 12/13/2016 DISCHARGE MEDICATIONS: 1. Omeprazole 20 mg b.i.d. 2. [place]-3 fatty acids daily. 3. ( ) hydrochlorothiazide 300/12.5 1 daily. 4. Lipitor 20 mg daily. 5. Multivitamin daily. 6. Aspirin 81 mg daily. 7. Colace 100 mg b.i.d. 8. [place] 7.5 q6 hours p.r.n. CONDITION: Stable. PROGNOSIS: Guarded. Ambulate as tolerated. DISCHARGE DIAGNOSES: 1. Acute pancreatitis secondary to acute cholecystitis. 2. Hypertension. 3. Dyslipidemia. Patient was stabilized from a medical standpoint and sent home in stable condition. Follow up as an outpatient, stabilized and sent home in stable condition. Follow up as an outpatient after cholecystectomy.
== END 2016-12-13 14:03 | disposition home or self-care (01) | DRG 417 ==
LOC: EC 14:57 → 4MS4W 20:21
PROVIDERS: ADMIT Family Medicine; ATTEND Family Medicine
PROC: 0FT44ZZ Resection of Gallbladder, Percutaneous Endoscopic Approach (ICD-10-PCS; principal; 2016-12-12 07:30)
DX: K80.12 Calculus of gallbladder with acute and chronic cholecystitis without obstruction (principal); K85.10 Biliary acute pancreatitis without necrosis or infection; I10 Essential (primary) hypertension; R73.9 Hyperglycemia, unspecified; K21.9 Gastro-esophageal reflux disease without esophagitis; Z79.82 Long term (current) use of aspirin; Z79.899 Other long term (current) drug therapy; E78.5 Hyperlipidemia, unspecified
CPT/HCPCS: 36415; 71020; 76705; 80053; 82150; 82550; 82553; 83036; 83690; 83735; 84443; 84484; 85025; 85610; 88304; 93005; 94760; 96361; 96365; 96375; 96376; 99285